=== PATIENT | female | born 1935 | race Caucasian/White ===

== ENCOUNTER 2017-10-17 06:00 | Day surgery (SDC) | payer OTHER, BC ==
[2017-10-17] MEDS ORDERED: LR 1,000 ML IV ONE (06:15)
[2017-10-17] MEDS ORDERED: LIDOCAINE 1% 2 ML INJ ID PRN (06:15)
[2017-10-17 06:26] VITALS: PULSE 67
--- NOTE | 2017-10-17 06:54 | PDANEPAE ---
ANE Past Medical History - Cardiovascular History Hx Hypertension: No Hx Arrhythmias: No Hx Chest Pain: No Hx Coronary Artery / Peripheral Vascular Disease: No Hx CHF / Valvular Disease: No Hx Palpitations: No - Pulmonary History Hx COPD: No Hx Asthma/Reactive Airway Disease: No Hx Recent Upper Respiratory Infection: No Hx Oxygen in Use at Home: No Hx Sleep Apnea: No Sleep Apnea Screening Result - Last Documented: Negative - Neurologic History Hx Cerebrovascular Accident: No Hx Seizures: No Hx Dementia: No - Endocrine History Hx Diabetes: No Hypothyroid: No Hyperthyroid: No Obesity: no - Renal History Hx Renal Disorders: Yes Renal History Comment: hx of UTI's on Macrobid- none recently - Liver History Hx Hepatic Disorders: No - Neurological & Psychiatric Hx Hx Neurological and Psychiatric Disorders: Yes Neurological / Psychiatric History Comment: occ low back pain w/standing long period - Cancer History Hx Cancer: No - Congenital Disorder History Hx Congenital Disorders: No - GI History Hx Gastrointestinal Disorders: Yes Gastrointestinal History Comment: "first meal of day -Hurts" w/ swallowing - Other Health History Other Health History: OA knees,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 "cracked skin"-hands,tips fingers - Chronic Pain History Chronic Pain: No - Surgical History Prior Surgeries: tonsillectomy 1939. bilat cataract extractions w/IOL ' rectal/vaginal fistula w/urinary sling ANE Review of Systems Review of Systems: - Exercise capacity METS (RN): 4 METS ANE Patient History - Allergies Allergies/Adverse Reactions: Sulfa (Sulfonamide Antibiotics) Allergy (Verified 10/04/17 13:57) Unknown - Home Medications Home Medications: CeleBREX 10/04/17 [Last Taken 10/15/17 18:00] Nitrofurantoin 10/04/17 [Last Taken 10/15/17 18:00] - NPO status NPO Since - Liquids (Date): 10/16/17 NPO Since - Liquids (Time): 20:00 NPO Since - Solids (Date): 10/16/17 NPO Since - Solids (Time): 20:00 - Anes Hx Anes Hx: no prior problems - Smoking Hx Smoking Status: Never smoked Marijuana use: No - Family Anes Hx Family Anes Hx: neg - N/A ANE Labs/Vital Signs - Vital Signs Blood Pressure: 164/80 Heart Rate: 67 Respiratory Rate: 17 O2 Sat (%): 92 Height: 162.56 cm Weight: 53.07 kg ANE Physical Exam - Airway Neck exam: FROM Mallampati Score: Class 2 Mouth exam: normal dental/mouth exam - Pulmonary Pulmonary: no respiratory distress, no rales or rhonchi, clear to auscultation - Cardiovascular Cardiovascular: regular rate and rhythym - ASA Status ASA Status: II ANE Anesthesia Plan Anesthesia Plan: MAC Total IV Anesthesia: Yes
[2017-10-17] MEDS ORDERED: PHENYLEPHRINE HCL 100 MCG/ML SYR ONE (07:13)
[2017-10-17] MEDS ORDERED: PROPOFOL/EMULSION 500 MG/50 ML BOTTLE IV ONE (07:13)
[2017-10-17] MEDS ORDERED: NALOXONE HCL 0.4 MG/ML INJ IVP PRN (07:16)
[2017-10-17] MEDS ORDERED: ONDANSETRON 4 MG/2 ML VIAL IVP PRN (07:16)
[2017-10-17] MEDS ORDERED: ACETAMINOPHEN 500 MG TAB PO PRN (07:16)
[2017-10-17] MEDS ORDERED: LR 500 ML IV PRN (07:16)
[2017-10-17] MEDS ORDERED: LIDOCAINE 2% 5 ML SDV ONE (07:19)
--- NOTE | 2017-10-17 07:26 | PDGENHP ---
History & Physical Chief Complaint: Dysphagia Relevant Physical Exam: GEN: NAD. Cardiac: RRR. Lungs: CTA B. Abd: Soft, nt, nd
--- NOTE | 2017-10-17 07:53 | GIREPORT ---
Formerly [facility] Surgical Services - Endoscopy Department Patient Name: Shayna Fuentes Procedure Date: 10/17/2017 7:24 AM Patient Type: Outpatient Attending MD/ ER Physician: Isaak Torres MD Procedure: Upper GI endoscopy Indications: Dysphagia Providers: Isaak Torres MD Medicines: Monitored Anesthesia Care Complications: No immediate complications. Description of Procedure: After obtaining informed consent, the endoscope was passed under direct vision. Throughout the procedure, the patient's blood pressure, pulse, and oxygen saturations were monitored continuously. The Endoscope was intro duced through the mouth, and advanced to the second part of duodenum. The [facility] er GI endoscopy was accomplished without difficulty. The patient tolerated th e procedure well. Findings: The Z-line was irregular and was found 36 cm from the incisors. A moderate Schatzki ring (acquired) was found at the gastroesophageal junction. A TTS dilator was passed through the scope. Dilation with a 12-13.5-15 mm balloon dilator was performed to 13.5 mm. A small hiatal hernia was present. Localized mild inflammation characterized by erosions, erythema and friability was found in the gastric body and in the gastric antrum. Bio psies were taken with a cold forceps for histology. Verification of patient identification for the specimen was done by the physician and nurse usi ng the patient's name and date. Estimated blood loss was minimal. Localized mild inflammation characterized by erosions, erythema and friability was found in the duodenal bulb. Biopsies were taken with a c old forceps for histology. Verification of patient identification for the specimen was done by the physician and nurse using the patient's name a nd date. Estimated blood loss was minimal. Estimated Blood Loss: Estimated blood loss: none. Post Op Diagnosis: - Z-line irregular, 36 cm from the incisors. - Moderate Schatzki ring. Dilated. - Small hiatal hernia. - Gastritis. Biopsied. - Duodenitis. Biopsied. Recommendation: - Discharge patient to home (with escort). - Resume previous diet. - Continue present medications. - Use Prilosec (omeprazole) 20 mg PO daily for 2 months. - Your pathology results are available within 10 days. - Thank you for allowing me to participate in the care of your patient. Attending Participation: I personally performed the entire procedure. Isaak Torres MD Isaak Torres MD 10/17/2017 7:53:37 AM This report has been signed electronicallyDaelza Torres MD Number of Addenda: 0 Note Initiated On: 10/17/2017 7:24 AM [email or web address]
--- NOTE | 2017-10-17 07:58 | POSTANESTH ---
Post Anesthetic Evaluation Cardiovascular Status: Normal, Stable Respiratory Status: Normal, Stable Level of Consciousness/Mental Status: Can Participate in Eval Pain Control: Adequate, Prn Tx Ordered Nausea/Vomiting Control: Adequate, Prn Tx Ordered Complications Possibly Related to Anesthesia: None Noted
[2017-10-17 08:31] VITALS: O2SAT 98
[2017-10-17 09:15] VITALS: TEMP 97.7
[2017-10-17 09:34] VITALS: BP 162/90; RESP 17
== END 2017-10-17 09:28 | disposition home or self-care (01) ==
LOC: FSGY 06:00
PROVIDERS: ATTEND Internal Medicine Gastroenterology
PROC: 0DB48ZX Excision of Esophagogastric Junction, Via Natural or Artificial Opening Endoscopic, Diagnostic (ICD-10-PCS; principal; 2017-10-17 07:30)
PROC: 0DB98ZX Excision of Duodenum, Via Natural or Artificial Opening Endoscopic, Diagnostic (ICD-10-PCS; principal; 2017-10-17 07:30)
PROC: 0DB68ZX Excision of Stomach, Via Natural or Artificial Opening Endoscopic, Diagnostic (ICD-10-PCS; principal; 2017-10-17 07:30)
DX: R13.10 Dysphagia, unspecified (principal)
CPT/HCPCS: 43239; C1726; J2370; J2704

== ENCOUNTER → 2018-11-23 | Outpatient (CLI) | payer OTHER, BC | LOC: BMCIMAGING 09:22 | PROVIDERS: ATTEND Internal Medicine Rheumatology | DX: M17.0 Bilateral primary osteoarthritis of knee (principal); M11.261 Other chondrocalcinosis, right knee; M11.262 Other chondrocalcinosis, left knee; M25.461 Effusion, right knee ==

== ENCOUNTER → 2018-12-12 | Outpatient (CLI) | payer OTHER, BC | LOC: BMCIMAGING 10:11 | PROVIDERS: ATTEND Internal Medicine | DX: Z13.820 Encounter for screening for osteoporosis (principal); M85.89 Other specified disorders of bone density and structure, multiple sites ==